=== PATIENT | female | born 1970 | race Caucasian/White ===

== ENCOUNTER → 2021-04-09 18:24 | Outpatient (CLI) | payer OTHER, SELFPAY ==
--- NOTE | 2021-04-09 | DI.MRI.S_ITS ---
PROCEDURE: MR CERVICAL SPINE WO CON INDICATIONS: Cervicalgia TECHNIQUE: Noncontrast sagittal T1 spin echo and T2 fast spin echo, sagittal STIR, foraminal oblique sagittal T2 fast spin echo, and axial gradient echo or T2 fast spin echo through the cervical spine. COMPARISON: None. FINDINGS: Normal configuration of the craniocervical junction. Straightening of the usual cervical lordosis. Otherwise normal alignment. Vertebral body heights maintained. No suspicious focal marrow signal abnormality. Discogenic marrow edema at the opposing C5-C6 and C6-C7 endplates. Normal morphology and signal intensity of the cervical cord. There is no syrinx. Regional soft tissues are grossly unremarkable in the absence of IV contrast (evaluation limited by motion artifact and pulsation artifact). C2-C3: No spinal canal or neural foraminal stenosis. C3-C4: No spinal canal stenosis. Facet and uncovertebral hypertrophy contribute to moderate right and mild left neural foraminal narrowing. C4-C5: No spinal canal stenosis. Moderate right and mild left neural foraminal narrowing due to facet and uncovertebral hypertrophy. C5-C6: Mild spinal canal stenosis due to posterior disc-osteophyte complex. Moderate left and mild right neural foraminal narrowing due to facet and uncovertebral hypertrophy. C6-C7: Mild bilateral neural foraminal narrowing due to facet and uncovertebral hypertrophy. No spinal canal stenosis.. C7-T1: No spinal canal or neural foraminal stenosis. IMPRESSION: Overall moderate multilevel multifactorial degenerative changes, most pronounced from C3-C4 through C5-C6 where there is moderate neural foraminal stenosis. Correlate for any corresponding radicular symptoms. Discogenic marrow edema at the opposing C5-C6 and C6-C7 endplates represent potential sources of nonradicular neck pain. Dictated by: José Miguel Hardy M.D. on 04/09/2021 at 18:22 Approved by: José Miguel Hardy M.D. on 04/09/2021 at 18:25
== END ==
PROVIDERS: Family Provider Nurse Practitioner Gerontology; Referring Provider Physical Medicine & Rehabilitation; Visit Provider Physical Medicine & Rehabilitation
DX: M47.812 Spondylosis without myelopathy or radiculopathy, cervical region (principal); M48.02 Spinal stenosis, cervical region; M54.2 Cervicalgia
CPT/HCPCS: 72141

== ENCOUNTER 2022-02-18 10:53 | Emergency (ER) | payer OTHER, MEDICAID, SELFPAY ==
[2022-02-18 11:07] VITALS: BP 123/71; PULSE 79; RESP 18; TEMP 36.4; O2SAT 99; BMI 22.3
--- NOTE | 2022-02-18 14:40 | DI.CT.S_ITS ---
PROCEDURE: CT HEAD/BRAIN WO CON INDICATIONS: tree limb fell on head, pain TECHNIQUE: Noncontrast 4.5 mm thick angled axial sections acquired from the foramen magnum to the vertex, with coronal and sagittal reformats. For radiation dose reduction, the following was used: automated exposure control, adjustment of mA and/or kV according to patient size. COMPARISON: [facility], CT, CT CERVICAL SPINE WO CON, 02/18/2022, 14:51. [facility], CT, HEAD WITHOUT CONTRAST, 05/18/2016, 19:48. FINDINGS: Image quality: Excellent. CSF spaces: Basal cisterns are patent. No extra-axial fluid collections. Ventricles are normal in size and shape. Brain: No midline shift. No intracranial masses or hemorrhage. Mike-white matter interface is normal. The previously seen right frontal extra-axial nodule is no longer definitely seen on the current study. Skull and face: Calvarium and visualized facial bones are intact, without suspicious lesions. Sinuses: Visualized sinuses and mastoids are clear. IMPRESSION: No acute intracranial hemorrhage is seen. No acute intracranial process is seen. No displaced calvarial fracture can be seen. Dictated by: Josh Nance M.D. on 02/18/2022 at 14:26 Approved by: Josh Nance M.D. on 02/18/2022 at 14:28
--- NOTE | 2022-02-18 14:40 | DI.CT.S_ITS ---
PROCEDURE: CT CERVICAL SPINE WO CON INDICATIONS: tree limb fell on head, pain TECHNIQUE: Noncontrast 3 mm thick sections acquired from the skull base to the T4 level. Sagittal and coronal reformats were then constructed. For radiation dose reduction, the following was used: automated exposure control, adjustment of mA and/or kV according to patient size. COMPARISON: [facility], CT, CT HEAD/BRAIN WO CON, 02/18/2022, 14:51. FINDINGS: Image quality: Excellent. Bones: No fractures or dislocations. Visualized superior ribs are intact. Focal degenerative change is seen involving the C1-C2 interface anteriorly. So apparently inferior There is moderate disc space narrowing seen at C3-C4 and C4-C5, with moderate to severe disc space narrowing seen at C5-C6 and C6-C7. Posteriorly directed endplate osteophytes are seen, which are worst at C5-C6. At least partially bridging anterior osteophytes are seen at several levels, which are worst at C5 through C7. Soft tissues: Prevertebral soft tissues are normal in thickness. No paravertebral hematomas. No apical pneumothoraces. IMPRESSION: No displaced fractures are seen. Dictated by: Josh Nance M.D. on 02/18/2022 at 14:24 Approved by: Josh Nance M.D. on 02/18/2022 at 14:26
--- NOTE | 2022-02-18 16:19 | ED.HEATRA ---
HPI - Head Injury General Chief complaint: Head Injury Stated complaint: Tree branch fell on top of head yesterday Time Seen by Provider: 02/18/22 16:18 Source: patient Mode of arrival: Ambulatory Limitations: no limitations History of Present Illness HPI Narrative: This is a 51-year-old female on escitalopram for anxiety. Patient was cutting tree branches yesterday. One of them fell landed vertically sitting on the tree and she was carrying branches fell and hit the left parietal area of her she has pain on the top of her head, as well as left neck. Patient states she is had probably multiple concussions in the past she felt stunned initially, she denies loss of consciousness. She denies midline neck pain but does have pain soft tissue of her neck. Patient denies any syncope or loss of consciousness. No chest pain or shortness of breath, no nausea or vomiting, no new numbness, tingling or weakness. Patient denies any loss of bowel or bladder control. She is had normal gait. She is not anticoagulated. She denies any recent surgeries. Patient states she is been taking Tylenol 2 tablets [id number] ibuprofen 400 mg at home which is helpful but does not completely help her pain. She states that the pain was sort of stabbing on the top of her scalp so she came presented today for evaluation. Patient does not believe her tetanus is up-to-date. No alcohol. She does smoke tobacco, occasional THC. Related Data Home Medications Medication Instructions Recorded Confirmed [ANTIDEPRESSANT] ##0 01/21/16 Previous Rx's Medication Instructions Recorded lorazepam 1 mg tablet (Ativan) 1 mg PO SEE INSTRUCTIONS #19 tabs 01/21/16 ondansetron 4 mg disintegrating 4 mg sublingual Q6HP PRN ##20 01/21/16 tablet (Zofran ODT) lorazepam 1 mg tablet (Ativan) 1 mg PO SEE INSTRUCTIONS #19 tabs 05/16/16 lorazepam 1 mg tablet (Ativan) 1 mg PO SEE INSTRUCTIONS #19 tabs 05/19/16 ondansetron 4 mg disintegrating 4 mg sublingual Q6HP PRN ##20 05/19/16 tablet (Zofran ODT) Allergies Allergy/AdvReac Type Severity Reaction Status Date / Time No Known Drug Allergies Allergy Verified 02/18/22 11:11 Review of Systems Review of Systems ROS Unobtainable: All systems reviewed & are unremarkable except as noted in HPI and below Patient History Social History Smoking Status: Current every day smoker Smoking Status: Current every day smoker Substance Use Type: marijuana Exam Narrative Exam Narrative: GEN: Patient appears in mild distress. HEAD: No evidence of trauma, no raccoon/Keller sign. NECK: Nontender, painless range of motion, trachea midline Negative Nexus criteria, midline line tenderness, distracting injury, altered mental status, neuro deficit, recent EtOH. EYES: PERRLA, EOMI ENT: External inspection normal, trachea is midline, TM's are normal no hemotypanum, Nares are clear, no septal hematoma, no dental or oral injury, airway is normal and with normal occlusion, No bony tenderness RESP: Chest is nontender and has symmetric movement, no ecchymosis, breath sounds are normal no crackles, wheezes or rales CVS: Heart sounds are normal, no murmur noted, No JVD. ABG/GI: Nontender, soft, normal bowel sounds, no distention, no organomegaly. NEURO: Oriented AOx3, neuro is grossly intact, sensation and motor is normal all 4 extremities moving, cranial nerves II through XII are intact, GCS is 15 PSYCH: Normal mood and affect SKIN: Superficial Abrasion of scalp on the top of the head, no lacerations, warm and dry, no crepitus and without decubitus BACK: No CVA tenderness, no vertebral tenderness, no step-off's, no crepitus EXT: Atraumatic, hips are nontender, no pedal edema, normal color and temperature, normal range of motion of extremities with normal tendon exam, 2+ pulses in all four extremities Initial Vital Signs Initial Vital Signs: Vital Signs Temperature 97.6 F 02/18/22 11:07 Pulse Rate 79 02/18/22 11:07 Respiratory Rate 18 02/18/22 11:07 Blood Pressure 123/71 02/18/22 11:07 Pulse Oximetry 99 02/18/22 11:07 Oxygen Delivery Method 02/18/22 11:07 Scores GCS Jennifer coma scale eye opening: Spontaneous Jennifer coma scale verbal response: Orientated Jennifer coma scale motor response: Obey commands [place] coma scale total score: 15 Nexus Score for C-Spine Focal Neurologic deficit present: No Midline spinal tenderness present: No Altered level of conciousness present: No Intoxication present: No Distracting Injury Present: No Nexus Criteria for C-spine: 0 Course Orders Ordered: ED Orders 02/18/22 14:40 CT cervical spine wo con Stat CT head/brain wo con Stat Discontinued Medications Diphtheria/Tetanus/Acell Pertussis (Tet,Diph,Pertuss(Acell),Vac/Pf 0.5 Ml Syringe) 0.5 ml IM .ONCE ONE Stop: 02/18/22 16:34 Last Admin: 02/18/22 16:53 Dose: 0.5 ml Documented By: RG Vital Signs Vital signs: Vital Signs - 8 hr 02/18/22 11:07 Temperature 97.6 F Pulse Rate 79 Respiratory Rate 18 Blood Pressure 123/71 Pulse Oximetry 99 Oxygen Delivery Method Room Air MDM - Head Injury Imaging Data CT scan - head: Radiologist's Impression: Close Head CT (Signed) Josh Nance - 02/18/[address] (Signed) Josh Nance - 02/18/22 Cervical Spine MRI (Signed) José Miguel Hardy - 04/09/21 Launch?[place] [address] CT Scan Report Signed Patient: Pranav Corral MR#: [id number] : 1970 Acct:[id number] Age/Sex: 51 / F Date of Service: 02/18/22 Loc: ED Accession Number: [id number] ?? Procedure: CT head/brain wo con Ordering Provider: Shalini Castillo D.O. PROCEDURE:? CT HEAD/BRAIN WO CON ? INDICATIONS:? tree limb fell on head, pain ? TECHNIQUE:? Noncontrast 4.5 mm thick angled axial sections acquired from the foramen magnum to the vertex, with coronal and sagittal reformats.? For radiation dose reduction, the following was used:? automated exposure control, adjustment of mA and/or kV according to patient size.? ? COMPARISON:? [facility], CT, CT CERVICAL SPINE WO CON, 02/18/2022, 14:51.? [facility], CT, HEAD WITHOUT CONTRAST, 05/18/2016, 19:48. ? FINDINGS:? Image quality:? Excellent.? ? CSF spaces:? Basal cisterns are patent.? No extra-axial fluid collections.? Ventricles are normal in size and shape.? ? Brain:? No midline shift.? No intracranial masses or hemorrhage.? Mike-white matter interface is normal.? The previously seen right frontal extra-axial nodule is no longer definitely seen on the current study. ? Skull and face:? Calvarium and visualized facial bones are intact, without suspicious lesions.? ? Sinuses:? Visualized sinuses and mastoids are clear.? IMPRESSION:? No acute intracranial hemorrhage is seen.? ? No acute intracranial process is seen.? ? No displaced calvarial fracture can be seen. ? ? Dictated by: Josh Nance M.D. on 02/18/2022 at 14:26 ? ? Approved by: Josh Nance M.D. on 02/18/2022 at 14:28?? CT - cervical spine: Radiologist's Impression: Pranav Corral??51??F??1970 ? Allergy/Adv: No Known Drug Allergies (More??) Close Head CT (Signed) Josh Nance - 02/18/[address] (Signed) Josh Nance - 02/18/22 Cervical Spine MRI (Signed) José Miguel Hardy - 04/09/21 Launch?[place] [address] CT Scan Report Signed Patient: Pranav Corral MR#: [id number] : 1970 Acct:[id number] Age/Sex: 51 / F Date of Service: 02/18/22 Loc: ED Accession Number: [id number] ?? Procedure: CT cervical spine wo con Ordering Provider: Shalini Castillo D.O. PROCEDURE:? CT CERVICAL SPINE WO CON ? INDICATIONS:? tree limb fell on head, pain ? TECHNIQUE:? Noncontrast 3 mm thick sections acquired from the skull base to the T4 level.? Sagittal and coronal reformats were then constructed.? For radiation dose reduction, the following was used:? automated exposure control, adjustment of mA and/or kV according to patient size.? ? COMPARISON:? [facility], CT, CT HEAD/BRAIN WO CON, 02/18/2022, 14:51. ? FINDINGS:? Image quality:? Excellent.? ? Bones:? No fractures or dislocations.? Visualized superior ribs are intact.? ? Focal degenerative change is seen involving the C1-C2 interface anteriorly.? So apparently inferior There is moderate disc space narrowing seen at C3-C4 and C4-C5, with moderate to severe disc space narrowing seen at C5-C6 and C6-C7.? Posteriorly directed endplate osteophytes are seen, which are worst at C5-C6.? At least partially bridging anterior osteophytes are seen at several levels, which are worst at C5 through C7. ? Soft tissues:? Prevertebral soft tissues are normal in thickness.? No paravertebral hematomas.? No apical pneumothoraces.? ? ? IMPRESSION:? No displaced fractures are seen.? Dictated by: Josh Nance M.D. on 02/18/2022 at 14:24 ? ? Approved by: Josh Nance M.D. on 02/18/2022 at 14:26?? [facility] Narrative Medical decision making narrative: This a 51-year-old female had a tree 3 or 4 in in diameter fall on her head yesterday. She still has, she does have some neck pain on the left no midline tenderness has pain with rotation. Head CT and C-spine were obtained these are negative. Patient's tetanus was updated. She is otherwise neurologically intact and clinically cleared. Plan to increase her ibuprofen to 600 mg every 6 hours. Discharge Plan Departure Patient Disposition: Home Clinical Impression: Abrasion of scalp, Cervical strain Accidentally struck by tree Qualifiers: Encounter type: initial encounter Qualified Code(s): W20.8XXA - Other cause of strike by thrown, projected or falling object, initial encounter Instructions: DI for Closed Head Injury Activity Restrictions/Additional Instructions: Follow-up if your symptoms are persisting beyond a week to 10 days. You can take Tylenol up to a 1000 mg every 6 hours and/or ibuprofen up to 600 mg every 6 hours. Please return for fevers, severe headaches, confusion, persistent vomiting, new neck or back pain, new numbness, weakness or loss of sensation, incontinence or other new or concerning symptoms Prescriptions: No Action [ANTIDEPRESSANT] Qty: 0 lorazepam [Ativan] 1 MG tablet 1 mg PO SEE INSTRUCTIONS Qty: 19 0RF ondansetron [Zofran ODT] 4 MG tablet,disintegrating 4 mg Sublingual Q6HP PRNQty: 20 0RF lorazepam [Ativan] 1 MG tablet 1 mg PO SEE INSTRUCTIONS Qty: 19 0RF lorazepam [Ativan] 1 MG tablet 1 mg PO SEE INSTRUCTIONS Qty: 19 0RF ondansetron [Zofran ODT] 4 MG tablet,disintegrating 4 mg Sublingual Q6HP PRNQty: 20 0RF Referrals: Stephani Mustafa, LIZETH [Primary Care Provider] -
[2022-02-18] MEDS: TET,DIPH,PERTUSS(ACELL),VAC/PF 0.5 ML SYRINGE IM (16:53)
== END 2022-02-18 19:58 | disposition home or self-care (01) ==
PROVIDERS: Emergency Provider Emergency Medicine; Family Provider Nurse Practitioner Gerontology; PCP Nurse Practitioner
DX: S00.01XA Abrasion of scalp, initial encounter (principal); S16.1XXA Strain of muscle, fascia and tendon at neck level, initial encounter; W20.8XXA Other cause of strike by thrown, projected or falling object, initial encounter; Z23 Encounter for immunization
CPT/HCPCS: 70450; 72125; 90471; 99284; 90715